=== PATIENT | female | born 1965 | race Caucasian/White ===

== ENCOUNTER 2021-06-22 07:30 | Inpatient (IN) | payer BC ==
[~2021-06-22] VITALS: Ht 162.6 cm; Wt 82.6 kg
== END 2021-06-26 11:57 | disposition home or self-care (01) | DRG 741 ==
LOC: O/R 06-24 07:05 → OB/GYN 06-24 07:05
PROVIDERS: ADMIT Specialist; ATTEND Specialist
PROC: 0UT24ZZ Resection of Bilateral Ovaries, Percutaneous Endoscopic Approach (ICD-10-PCS; 2021-06-24)
PROC: 0UT74ZZ Resection of Bilateral Fallopian Tubes, Percutaneous Endoscopic Approach (ICD-10-PCS; 2021-06-24)
PROC: 07BC4ZZ Excision of Pelvis Lymphatic, Percutaneous Endoscopic Approach (ICD-10-PCS; 2021-06-24)
PROC: 0UT94ZZ Resection of Uterus, Percutaneous Endoscopic Approach (ICD-10-PCS; principal; 2021-06-24 13:30)
DX: C54.1 Malignant neoplasm of endometrium (principal); N85.00 Endometrial hyperplasia, unspecified; D25.2 Subserosal leiomyoma of uterus; D36.0 Benign neoplasm of lymph nodes; N95.0 Postmenopausal bleeding